=== PATIENT | male | born 1950 ===

== ENCOUNTER 2022-09-21 13:06 | Emergency (ER) | payer MEDICARE ==
[2022-09-21] MEDS ORDERED: Sodium Chloride 0.9% 1,000 ML IV SCH (13:45)
[2022-09-21 14:27] LABS: ESTIMATED GFR 74 mL/min (>60); TROPONIN I HIGH SENSITIVITY 6.2 pg/ml (<=60.4)
== END 2022-09-21 15:00 | disposition home or self-care (01) ==
LOC: LB.ED 13:06
DX: R42 Dizziness and giddiness (principal)
CPT/HCPCS: 36415; 80048; 84484; 85027; 93005; 93010; 96360; 99283; 99284-25; J7030